=== PATIENT | male | born 1965 | race Caucasian/White ===

== ENCOUNTER → 2017-05-29 | Outpatient (CLI) | payer BC, OTHER ==
[~2017-05-29] MED LIST: CIPR500T3 PO; TYLE650T35 PO
== END ==
LOC: M SMT 09:20
PROVIDERS: ATTEND Urology
DX: R39.9 Unspecified symptoms and signs involving the genitourinary system (principal)

== ENCOUNTER → 2017-06-17 | Outpatient (CLI) | payer BC, OTHER ==
--- NOTE | 2017-06-18 09:14 | REP ---
Renal and bladder ultrasound: There are no comparisons. The kidneys are normal size per Right kidney measures 12.1 x 5.9 x 4.5 cm. Left kidney measures 12.7 x 6.4 x 5.1 cm. Renal cortical echogenicity is normal bilaterally. There is no hydronephrosis on the right on the left. There is an exophytic 2.4 cm mass at the lower pole of the left kidney containing cystic and solid components and having a low resistance arterial flow. There are no comparison studies to document stability. Neoplasm is a primary consideration. No other cysts or masses are identified on the right on the left. No renal calculi are identified. The bladder is poorly distended and cannot be further evaluated at this time. Impression: There is an exophytic 2.4 cm mass at the lower pole left kidney containing solid and cystic components and having a low resistance arterial flow pattern. Neoplasm is a primary consideration. Otherwise, negative renal ultrasound. Signed by Sreedhar Vergara MD 06/17/2017 08:17 A
== END ==
LOC: M RAD 07:09
PROVIDERS: ATTEND Urology
DX: N28.89 Other specified disorders of kidney and ureter (principal); R10.9 Unspecified abdominal pain; R82.90 Unspecified abnormal findings in urine

== ENCOUNTER → 2017-07-04 | Outpatient (CLI) | payer BC, OTHER ==
[~2017-07-04] MED LIST changes: +ISOVUE-370 76% 100ML VIAL (Q9967) As Ordered ONE
--- NOTE | 2017-07-04 14:48 | REP ---
CT study abdomen and pelvis without and with IV contrast, without oral contrast. CT urogram. History: Renal mass. No comparison CT study. Comparison renal sonography June 17, 2017. CT contrast dose: 100 mL of intravenous Isovue 370. CT findings: The lung bases are clear. The liver and the spleen are normal in size and homogeneous in texture. No adrenal lesion is seen on either side. Pancreas has a normal appearance. No abnormality is seen in the gallbladder. A normal caliber aorta is seen. There is an area of cortical atrophy in the upper pole and mid pole region of the left kidney. At the lower pole, there is a somewhat heterogeneous, enhancing mass lesion suspicious for renal cell carcinoma. This measures 2.4 cm in greatest diameter. There is no intralesional fat within this lesion. Renal veins are unremarkable bilaterally. No other renal mass lesion is observed. Delayed scan images show no filling defect or other lesion within the collecting system. No other mass lesion is seen. No bony destructive lesion is appreciated. Impression: Suspicious solid enhancing mass lower pole left kidney 2.4 cm in greatest diameter. This is suspicious for renal cell carcinoma. There is no evidence of intralesional fat. No other significant abnormality is seen. Signed by Joshua Stanley MD 07/04/2017 04:23 P
== END ==
LOC: M RAD 13:46
PROVIDERS: ATTEND Nurse Practitioner Women's Health
DX: N28.89 Other specified disorders of kidney and ureter (principal)
CPT/HCPCS: 74178; Q9967

== ENCOUNTER → 2017-07-08 | Outpatient (CLI) | payer BC, OTHER ==
[~2017-07-08] MED LIST changes: -ISOVUE-370 76% 100ML VIAL (Q9967) As Ordered ONE
--- NOTE | 2017-07-09 05:47 | ECGEPIP ---
Stationary ECG Study Test Date: 2017-07-08 Pat Name: LILLIAN AUGUSTE Department: Room: - Gender: M Vice President Process: : 1965 Requested By: AURELIA Cummings Order Number: [id number] Reading MD: Heriberto Cruz Measurements Intervals [place] Rate: 56 P: 47 NE: 159 QRS: 19 QRSD: 97 T: 14 QT: 388 QTc: 375 Interpretive Statements Sinus bradycardia Normal EKG No significant change when compared to prior tracing of 11/09/2014 Electronically Signed On 07-09-2017 5:46:43 EDT by Heriberto Cruz
== END ==
LOC: M LAB 16:01 → M EKG 16:01
PROVIDERS: ATTEND Urology
DX: Z01.818 Encounter for other preprocedural examination (principal); N28.89 Other specified disorders of kidney and ureter

== ENCOUNTER → 2017-07-08 | Outpatient (CLI) | payer BC, OTHER ==
--- NOTE | 2017-07-08 10:16 | REP ---
Chest two views HISTORY: Renal mass Comparison: 11/09/2014 The lungs are clear. The heart is normal in size. The pulmonary vasculature is normal in appearance. The bony structure is intact. IMPRESSION: No acute disease. Signed by Zeke Rey MD 07/08/2017 10:07 A
[2017-07-08 13:41] LABS: MEAN CORPUSCULAR HEMOGLOBIN 30.2 pg (27.0-33.0); MEAN CORPUSCULAR HGB CONC 34.2 g/dl (32.0-36.5); MEAN CORPUSCULAR VOLUME 88.3 fl (80.0-96.0); RED CELL DISTRIBUTION WIDTH 13.1 % (11.5-14.5); WHITE BLOOD COUNT 5.5 K/mm3 (4.0-10.0)
[2017-07-08 13:44] LABS: INR 0.9
[2017-07-08 13:47] LABS: ANION GAP 5 MEQ/L (8-16); BLOOD UREA NITROGEN 19 MG/DL (7-18); CALCIUM LEVEL 9.5 MG/DL (8.5-10.1); CARBON DIOXIDE LEVEL 32 MEQ/L (21-32); CHLORIDE LEVEL 104 MEQ/L (98-107); CREATININE FOR GFR 0.99 MG/DL (0.70-1.30); GLOMERULAR FILTRATION RATE > 60.0 (>56); GLUCOSE, FASTING 95 MG/DL (70-105); POTASSIUM SERUM 4.8 MEQ/L (3.5-5.1); SODIUM LEVEL 141 MEQ/L (136-145)
== END ==
LOC: M SMT 09:07
PROVIDERS: ATTEND Urology
DX: Z01.818 Encounter for other preprocedural examination (principal); N28.89 Other specified disorders of kidney and ureter

== ENCOUNTER 2017-07-16 06:02 | Inpatient (IN) | payer BC, OTHER ==
[~2017-07-16] VITALS: Ht 177.8 cm; Wt 86.2 kg
[2017-07-16] VITALS (7 sets, daily range): BP systolic 119–157; BP diastolic 64–80
[2017-07-16] MEDS ORDERED: LR 1,000 ML IV ONE (06:15)
[2017-07-16] MEDS ORDERED: fentaNYL 250 MCG/5 ML INJECTION (J3010) As Ordered ONE (08:28)
[2017-07-16] MEDS ORDERED: LIDOCAINE 2% INJ 100 MG/5 ML SDV (FOR ANES.) As Ordered ONE (08:28)
[2017-07-16] MEDS ORDERED: dexameTHASONE 4 MG/ML 1ML VIAL (J1100) As Ordered ONE (08:28)
[2017-07-16] MEDS ORDERED: NEOSTIGMINE 1MG/ML 5 ML SYRINGE (J2710) As Ordered ONE (08:28)
[2017-07-16] MEDS ORDERED: HYDROmorphone HCL 2 MG/ML 1ML VIAL (J1170) As Ordered ONE (08:28)
[2017-07-16] MEDS ORDERED: ROCURONIUM BROMIDE 50 MG/5 ML VIAL/SYRINGE As Ordered ONE ×2 (08:28→10:18)
[2017-07-16] MEDS ORDERED: ONDANSETRON 4MG/2ML VIAL (J2405) As Ordered ONE (08:28)
[2017-07-16] MEDS ORDERED: PROPOFOL 200 MG/20 ML VIAL As Ordered ONE (08:28)
[2017-07-16] MEDS ORDERED: MIDAZOLAM INJ 2 MG/2 ML VIAL (J2250) As Ordered ONE (08:28)
[2017-07-16] MEDS ORDERED: GLYCOPYRROLATE INJ 0.2 MG/ML 2 ML VIAL As Ordered ONE (08:28)
[2017-07-16] MEDS ORDERED: ePHEDrine SULFATE 25 MG/5 ML(5MG/ML) SYRINGE As Ordered ONE (08:36)
[2017-07-16] MEDS ORDERED: KETOROLAC 60 MG/2 ML VIAL (J1885) As Ordered ONE (11:18)
[2017-07-16] MEDS ORDERED: HYDROmorphone HCL 1 MG/ML SYRINGE (J1170) As Ordered ONE (12:02)
[2017-07-16] MEDS: HYDROmorphone HCL 1 MG/ML SYRINGE (J1170) IV PRN ×4 (12:03→12:24)
[2017-07-16] MEDS ORDERED: PERCOCET 5MG/325MG TAB PO PRN (12:15)
[2017-07-16] MEDS ORDERED: METOCLOPRAMIDE INJ 10MG/2ML VIAL (J2765) IV PRN (12:15)
[2017-07-16] MEDS ORDERED: fentaNYL 100 MCG/2 ML INJECTION (J3010) IV PRN (12:15)
[2017-07-16] MEDS ORDERED: ONDANSETRON 4MG/2ML VIAL (J2405) IV PRN ×2 (12:15)
[2017-07-16] MEDS ORDERED: LR 1,000 ML IV SCH (12:15)
[2017-07-16 12:23] LABS: MEAN CORPUSCULAR HEMOGLOBIN 30.4 pg (27.0-33.0); MEAN CORPUSCULAR HGB CONC 34.8 g/dl (32.0-36.5); MEAN CORPUSCULAR VOLUME 87.5 fl (80.0-96.0); RED CELL DISTRIBUTION WIDTH 12.9 % (11.5-14.5); WHITE BLOOD COUNT 8.2 K/mm3 (4.0-10.0)
[2017-07-16 12:43] LABS: ANION GAP 9 MEQ/L (8-16); BLOOD UREA NITROGEN 17 MG/DL (7-18); CALCIUM LEVEL 8.4 MG/DL (8.5-10.1); CARBON DIOXIDE LEVEL 25 MEQ/L (21-32); CHLORIDE LEVEL 108 MEQ/L (98-107); CREATININE FOR GFR 1.07 MG/DL (0.70-1.30); GLOMERULAR FILTRATION RATE > 60.0 (>56); GLUCOSE, FASTING 119 MG/DL (70-105); POTASSIUM SERUM 3.9 MEQ/L (3.5-5.1); SODIUM LEVEL 142 MEQ/L (136-145)
[2017-07-16] MEDS: PANTOPRAZOLE 40MG INJ (PROTONIX) (C9113) IV SCH (13:27)
[2017-07-16] MEDS: KCL 20MEQ IN D5/0.45NS 1000ML 1,000 ML IV SCH ×2 (13:27→21:10)
[2017-07-16] MEDS: ACETAMINOPHEN 650MG ER TAB (TYLENOL ARTHRITIS) PO SCH ×2 (15:08→22:35)
[2017-07-16] MEDS: MORPHINE 4 MG/ML 1ML SYRINGE IV PRN ×2 (16:08→21:09)
[2017-07-16] MEDS: CIPROFLOXACIN 500 MG TAB PO SCH (17:49)
[2017-07-16] MEDS: oxyCODONE 5MG TAB PO PRN (17:50)
[2017-07-16] MEDS ORDERED: KETOROLAC 30 MG/ML VIAL (J1885) As Ordered ONE (20:07)
[2017-07-16] MEDS: KETOROLAC 30 MG/ML VIAL (J1885) IV SCH (20:13)
[2017-07-17] VITALS: BP 128/72
[2017-07-17] MEDS: MORPHINE 4 MG/ML 1ML SYRINGE IV PRN ×3 (00:06→09:21)
[2017-07-17 04:00] VITALS: BP 138/61
[2017-07-17] MEDS: KETOROLAC 30 MG/ML VIAL (J1885) IV SCH ×2 (04:08→11:46)
[2017-07-17] MEDS: KCL 20MEQ IN D5/0.45NS 1000ML 1,000 ML IV SCH ×3 (04:08→20:35)
[2017-07-17] MEDS: CIPROFLOXACIN 500 MG TAB PO SCH ×2 (05:56→17:25)
[2017-07-17] MEDS: ACETAMINOPHEN 650MG ER TAB (TYLENOL ARTHRITIS) PO SCH ×3 (05:56→21:17)
[2017-07-17 08:00] VITALS: BP 128/76
[2017-07-17 08:05] LABS: MEAN CORPUSCULAR HEMOGLOBIN 30.4 pg (27.0-33.0); MEAN CORPUSCULAR HGB CONC 34.5 g/dl (32.0-36.5); MEAN CORPUSCULAR VOLUME 88.4 fl (80.0-96.0); RED CELL DISTRIBUTION WIDTH 13.1 % (11.5-14.5); WHITE BLOOD COUNT 11.2 K/mm3 (4.0-10.0)
[2017-07-17 08:36] LABS: ANION GAP 10 MEQ/L (8-16); BLOOD UREA NITROGEN 12 MG/DL (7-18); CALCIUM LEVEL 7.9 MG/DL (8.5-10.1); CARBON DIOXIDE LEVEL 25 MEQ/L (21-32); CHLORIDE LEVEL 106 MEQ/L (98-107); CREATININE FOR GFR 0.84 MG/DL (0.70-1.30); GLOMERULAR FILTRATION RATE > 60.0 (>56); GLUCOSE, FASTING 122 MG/DL (70-105); POTASSIUM SERUM 4.3 MEQ/L (3.5-5.1); SODIUM LEVEL 141 MEQ/L (136-145)
[2017-07-17 12:00] VITALS: BP 124/71
[2017-07-17] MEDS: PANTOPRAZOLE 40MG INJ (PROTONIX) (C9113) IV SCH (13:15)
[2017-07-17 16:00] VITALS: BP 117/63
[2017-07-17] MEDS: oxyCODONE 5MG TAB PO PRN (17:28)
[2017-07-17] MEDS ORDERED: oxyCODONE 5MG TAB PO PRN (18:00)
[2017-07-17 20:00] VITALS: BP 134/73
[2017-07-18] VITALS: BP 122/66
[2017-07-18] MEDS: oxyCODONE 5MG TAB PO PRN ×4 (02:45→17:44)
[2017-07-18 04:00] VITALS: BP 121/69
--- NOTE | 2017-07-18 05:54 | RO ---
DATE OF PROCEDURE: 07/16/2017 PREOPERATIVE DIAGNOSIS: Left renal neoplasm. POSTOPERATIVE DIAGNOSIS: Left renal neoplasm. SURGERY PERFORMED: Robotic-assisted left partial nephrectomy. SURGEON: Pietro Dominguez MD FILE MACHINE OPERATOR: Franny Callaway NP ANESTHESIA: General. ESTIMATED BLOOD LOSS (EBL): 100 mL. COMPLICATIONS: None. HISTORY OF PRESENT ILLNESS: 52-year-old male patient that has a 2.5 cm left renal neoplasm enhancing on CT scan of the abdomen and pelvis with intravenous (IV) contrast. For this reason, he has elected for robotic-assisted left partial nephrectomy. PROCEDURE DESCRIPTION: In a patient in supine modified low lithotomy position under general anesthesia with an orogastric tube draining gastric content and a Greene catheter #[id number] with a 10 mL balloon draining the Greene catheter, we placed the patient in the decubitolateral position with the left side up and the right side down. We then proceeded to prep and drape the area of concern, which included the entire genitalia and abdomen and the left flank. We then proceeded to do an incision about 2 cm in diameter in the supraumbilical area about 4 cm above the umbilicus and about 2 cm towards the lateral area of the umbilicus. Through this incision, we opened up abdominal cavity, introduced a balloon trocar, and inflated the balloon to 40 mL; and through this balloon trocar, we actively insufflated the abdomen with CO2 at a maximum pressure of 15 at high flow. Under videoendoscopic guidance with the help of robotic camera, we actively placed the other trocars in a controlled fashion. We placed an 8 mm metallic trocar in midclavicular line subcostally and then another 8 mm metallic trocar in the left lower quadrant in the midclavicular line also. Between these two, we placed a 12 mm VersaStep. In the anterior axillary line, we placed a long 8 mm metallic trocar also 2 cm away from the anterior iliac crest for the third arm. We then proceeded to dock the robot. On the left arm, we used monopolar scissors. On the right arm, we used bipolar PK and a ProGrasp. We started by dissecting the line of Toldt and retracting the colon toward the midline. We then proceeded to actively dissect the gonadal vessel, following the gonadal vessel up to the renal vein. Once we identified the renal vein, we actively dissected the ureter and in traction lateral with the third arm. We then proceeded to elevate the lower pole of the kidney with the third arm, traction in the lower pole of the kidney laterally and up. We then dissected the renal artery. After dissecting the renal artery and the renal vein, we introduced a bulldog inside the abdomen. We then proceeded to actively defat the kidney in the lower pole and the lateral part, also. We identified the mass, which was exophytic, about 2 cm in diameter to 2.5 cm in diameter. We introduced an intraoperative ultrasound and, under TilePro visualization, we demarcated the margins of the tumor. We then proceeded to actively introduce 2.5 mL of indocyanine green in the vein and, actually, we could identify the vasculature pedicle of the kidney and also we could actually visualize green parenchyma and lack of indocyanine green captation of the mass. At that moment in time, we actually, with a bulldog, clamped the artery and then, with monopolar scissors, excised the renal neoplasm. We then proceeded to actively introduce #3-0 V-Loc attached to a Hem-o-jayashree at the end and running it completely the at the medulla and securing it with Hem-o-jayashree in the capsule of the kidney. We then proceeded to pass a second #3-0 V-Loc and run it in the medulla also to control hemostasis. Once it was performed, we placed a Hem-o-jayashree against the capsule of the kidney. We then took out the bulldog. The warm ischemia time was 17 minutes. We then proceeded to actually grab #2-0 V-Locs attached to a Hem-o-jayashree at the end of the suture line and approximated the capsule, closing the parenchyma excision area, and closing the wound on the kidney with a V-Loc approximating both parenchymal edges with V-Loc and Hem-o-jayashree sliding clips in a running fashion. Once hemostasis was controlled, we placed Randi on top of it and then placed the kidney and the peritumoral fat into a 10 mm Endo Catch bag and then took out the third arm and placed a round drain, a #15 blade, into retroperitoneal space. We then took all the instruments out and undocked the robot. We took the mass in the Endo Catch bag through the midline incision and then closed the optic port in two layers with UR-6 and #0 Vicryl in separate stitches times four the first layer and times four the second layer. We then suture ligated the drain to the skin with #3-0 nylon and put it into bulb suction. We then closed every single incision with Monocryl subcuticular stitches in a running fashion, placed Steri-Strips, Telfa, and Tegaderm on top of each incision site. There were no complications during surgery. Patient will pass to recovery and then to the floor. Once he is tolerating regular diet and voiding very well, he will be discharged home. Mass was sent as left renal neoplasm.
[2017-07-18] MEDS: CIPROFLOXACIN 500 MG TAB PO SCH ×2 (06:23→17:44)
[2017-07-18] MEDS: ACETAMINOPHEN 650MG ER TAB (TYLENOL ARTHRITIS) PO SCH ×3 (06:23→21:17)
[2017-07-18 06:54] LABS: MEAN CORPUSCULAR HEMOGLOBIN 30.2 pg (27.0-33.0); MEAN CORPUSCULAR HGB CONC 33.4 g/dl (32.0-36.5); MEAN CORPUSCULAR VOLUME 90.6 fl (80.0-96.0); RED CELL DISTRIBUTION WIDTH 13.4 % (11.5-14.5); WHITE BLOOD COUNT 8.3 K/mm3 (4.0-10.0)
[2017-07-18] MEDS: KCL 20MEQ IN D5/0.45NS 1000ML 1,000 ML IV SCH (07:04)
[2017-07-18 07:05] LABS: ANION GAP 6 MEQ/L (8-16); BLOOD UREA NITROGEN 16 MG/DL (7-18); CALCIUM LEVEL 7.8 MG/DL (8.5-10.1); CARBON DIOXIDE LEVEL 29 MEQ/L (21-32); CHLORIDE LEVEL 109 MEQ/L (98-107); CREATININE FOR GFR 0.87 MG/DL (0.70-1.30); GLOMERULAR FILTRATION RATE > 60.0 (>56); GLUCOSE, FASTING 100 MG/DL (70-105); POTASSIUM SERUM 4.1 MEQ/L (3.5-5.1); SODIUM LEVEL 144 MEQ/L (136-145)
[2017-07-18 08:45] VITALS: BP 142/86
[2017-07-18 12:30] VITALS: BP 141/82
[2017-07-18] MEDS: PANTOPRAZOLE 40MG INJ (PROTONIX) (C9113) IV SCH (13:31)
[2017-07-18 15:46] LABS: SOURCE, BODY FLUID CREATININE OTHER
[2017-07-18 16:00] VITALS: BP 139/83
[2017-07-18 20:00] VITALS: BP 153/86
[2017-07-19 02:00] VITALS: BP 122/73
[2017-07-19] MEDS: oxyCODONE 5MG TAB PO PRN ×2 (02:29→11:59)
[2017-07-19] MEDS: ACETAMINOPHEN 650MG ER TAB (TYLENOL ARTHRITIS) PO SCH ×2 (05:47→13:52)
[2017-07-19] MEDS: CIPROFLOXACIN 500 MG TAB PO SCH (05:47)
[2017-07-19 06:52] LABS: MEAN CORPUSCULAR HEMOGLOBIN 30.2 pg (27.0-33.0); MEAN CORPUSCULAR HGB CONC 33.2 g/dl (32.0-36.5); RED CELL DISTRIBUTION WIDTH 13.3 % (11.5-14.5); WHITE BLOOD COUNT 6.8 K/mm3 (4.0-10.0)
[2017-07-19 07:09] LABS: ANION GAP 9 MEQ/L (8-16); BLOOD UREA NITROGEN 15 MG/DL (7-18); CALCIUM LEVEL 8.3 MG/DL (8.5-10.1); CARBON DIOXIDE LEVEL 30 MEQ/L (21-32); CHLORIDE LEVEL 106 MEQ/L (98-107); CREATININE FOR GFR 1.11 MG/DL (0.70-1.30); GLOMERULAR FILTRATION RATE > 60.0 (>56); GLUCOSE, FASTING 131 MG/DL (70-105); POTASSIUM SERUM 4.2 MEQ/L (3.5-5.1); SODIUM LEVEL 145 MEQ/L (136-145)
[2017-07-19 08:00] VITALS: BP 127/78
[2017-07-19 12:00] VITALS: BP 154/87
[2017-07-19] MEDS: PANTOPRAZOLE 40MG INJ (PROTONIX) (C9113) IV SCH (13:51)
[2017-07-19] MEDS ORDERED: CIPR500T3 PO (14:10)
[2017-07-19] MEDS ORDERED: TYLE650T35 PO (14:10)
--- NOTE | 2017-07-21 21:08 | DSES ---
DATE OF ADMISSION: 07/16/2017 DATE OF DISCHARGE: 07/19/2017 PREOPERATIVE DIAGNOSIS: Left renal tumor. POSTOPERATIVE DIAGNOSIS: Left renal tumor. SURGERY PERFORMED: Robotic-assisted left partial nephrectomy. ADMITTING SURGEON: Dr. Pietro Dominguez DISCHARGING SURGEON: Dr. Pietro Dominguez SURGERY PERFORMED BY: Dr. Pietro Dominguez HISTORY OF PRESENT ILLNESS: A 52-year-old male patient who had incidental finding of a 2.5 cm left enhancing renal neoplasm on a CT scan of an abdomen and pelvis with intravenous (IV) contrast. Patient for this reason had elected to have a robotic-assisted partial nephrectomy performed on 07/16/2017 without complications. He was admitted after this. HOSPITALIZATION COURSE: The patient did very well. By postoperative day #1 he was having clear liquid diet. Pain was under control with IV pain medication. He was continued on Greene catheter on postoperative day #1. Within postoperative day #2 he was tolerating an oral diet, ambulating very well, and the pain well controlled with by mouth pain medication with maintenance IV fluids, and [facility]. On postoperative day #3, the patient was tolerating a regular diet. Pain was controlled with by mouth pain medication. He was voiding very well spontaneously. His RAMILA output was minimal. His creatinine level in the RAMILA fluid was 1. Was compatible with SERUM CREATININE. For this reason we discontinued the RAMILA. He wanted to go him, and we agreed upon this. He will go home with oxycodone 5 mg one tablet by mouth every 6 hours as needed for pain. He will take Tylenol 500 mg one tablet by mouth every 6 hours around the clock. He cannot do any heavy lifting above 20 pounds. He may shower in 3 days. No driving under narcotics. He cannot do any exercise for 2 weeks. Followup at [facility] in 2 weeks. 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 Margins negative. MTDD
== END 2017-07-19 14:30 | disposition home or self-care (01) | DRG 443 ==
LOC: M OR 06:02 → M PED 12:58
PROVIDERS: ADMIT Urology; ATTEND Urology
PROC: 0TB14ZZ Excision of Left Kidney, Percutaneous Endoscopic Approach (ICD-10-PCS; principal; 2017-07-16 07:30)
DX: D30.02 Benign neoplasm of left kidney (principal)

== ENCOUNTER → 2017-09-02 | Outpatient (REF) | payer BC, OTHER ==
[2017-09-02 20:46] LABS: MEAN CORPUSCULAR HGB CONC 33.4 g/dl (32.0-36.5); MEAN CORPUSCULAR VOLUME 86.8 fl (80.0-96.0); PLATELET COUNT, AUTOMATED 201 10^3/uL (150-450); RED CELL DISTRIBUTION WIDTH 12.4 % (11.5-14.5); WHITE BLOOD COUNT 5.2 10^3/uL (4.0-10.0)
[2017-09-02 21:20] LABS: ANION GAP 8 MEQ/L (8-16); BLOOD UREA NITROGEN 20 MG/DL (7-18); CALCIUM LEVEL 9.2 MG/DL (8.5-10.1); CARBON DIOXIDE LEVEL 29 MEQ/L (21-32); CHLORIDE LEVEL 105 MEQ/L (98-107); CREATININE FOR GFR 1.07 MG/DL (0.70-1.30); GLOMERULAR FILTRATION RATE > 60.0 (>56); GLUCOSE, FASTING 108 MG/DL (70-105); POTASSIUM SERUM 4.3 MEQ/L (3.5-5.1); SODIUM LEVEL 142 MEQ/L (136-145)
== END ==
LOC: M SMT 15:14
PROVIDERS: ATTEND Urology
DX: N28.89 Other specified disorders of kidney and ureter (principal)

== ENCOUNTER → 2018-01-04 | Outpatient (REF) | payer BC, OTHER ==
[2018-01-04 16:52] LABS: HEMATOCRIT 48.4 % (42.0-52.0); HEMOGLOBIN 16.4 g/dl (14.0-18.0); MEAN CORPUSCULAR HEMOGLOBIN 29.3 pg (27.0-33.0); MEAN CORPUSCULAR HGB CONC 33.9 g/dl (32.0-36.5); MEAN CORPUSCULAR VOLUME 86.4 fl (80.0-96.0); PLATELET COUNT, AUTOMATED 194 10^3/uL (150-450); RED CELL DISTRIBUTION WIDTH 13.2 % (11.5-14.5); WHITE BLOOD COUNT 6.7 10^3/uL (4.0-10.0)
[2018-01-04 17:06] LABS: URIC ACID 6.1 MG/DL (3.5-7.2)
[2018-01-04 17:21] LABS: ERYTHROCYTE SEDIMENTATION RATE 2 mm/hr (0-20)
== END ==
LOC: M LAB REF 16:37
DX: M25.50 Pain in unspecified joint (principal)

== ENCOUNTER → 2018-04-06 | Outpatient (REF) | payer BC, OTHER ==
[2018-04-06 15:19] LABS: HEMATOCRIT 48.4 % (42.0-52.0); HEMOGLOBIN 16.7 g/dl (13.5-17.5); MEAN CORPUSCULAR HEMOGLOBIN 29.7 pg (27.0-33.0); MEAN CORPUSCULAR HGB CONC 34.5 g/dl (32.0-36.5); MEAN CORPUSCULAR VOLUME 86.1 fl (80.0-96.0); PLATELET COUNT, AUTOMATED 201 10^3/uL (150-450); RED BLOOD COUNT 5.62 10^6/uL (4.30-6.10); RED CELL DISTRIBUTION WIDTH 12.3 % (11.5-14.5)
[2018-04-06 15:25] LABS: APPEARANCE, URINE CLEAR (CLEAR); BACTERIA, URINE AUTO NEGATIVE (NEGATIVE); BILIRUBIN, URINE AUTO NEGATIVE (NEGATIVE); BLOOD, URINE BLOOD NEGATIVE (NEGATIVE); COLOR, URINE YELLOW (YELLOW); GLUCOSE, URINE (UA) AUTO NEGATIVE (NEGATIVE); KETONE, URINE AUTO NEGATIVE (NEGATIVE); LEUKOCYTE ESTERASE, URINE AUTO NEGATIVE (NEGATIVE); MUCUS, URINE SMALL (NEGATIVE); NITRITE, URINE AUTO NEGATIVE (NEGATIVE); PROTEIN, URINE AUTO NEGATIVE (NEGATIVE); RBC, URINE AUTO 0 /HPF (0-3); SPECIFIC GRAVITY URINE AUTO 1.023 (1.002-1.035); SQUAMOUS EPITHELIAL CELL UR AU 0 /HPF (0-6); UROBILINOGEN, URINE AUTO 0.2 mg/dL (0.0-2.0); WBC, URINE AUTO 0 /HPF (0-3)
[2018-04-06 16:10] LABS: ANION GAP 11 MEQ/L (8-16); BLOOD UREA NITROGEN 27 MG/DL (7-18); CARBON DIOXIDE LEVEL 23 MEQ/L (21-32); CHLORIDE LEVEL 109 MEQ/L (98-107); CREATININE FOR GFR 1.03 MG/DL (0.70-1.30); GLOMERULAR FILTRATION RATE > 60.0 (>56); GLUCOSE, FASTING 85 MG/DL (70-100); SODIUM LEVEL 143 MEQ/L (136-145)
[2018-04-10 13:39] LABS: PSA TOTAL 0.9 ng/mL
== END ==
LOC: M SMT 12:00
DX: D17.71 Benign lipomatous neoplasm of kidney (principal)
CPT/HCPCS: 80048

== ENCOUNTER → 2019-05-18 | Outpatient (CLI) | payer BC, OTHER ==
[~2019-05-18] MED LIST changes: +ISOVUE-370 76% 100ML VIAL (Q9967) As Ordered ONE
--- NOTE | 2019-05-18 22:02 | REP ---
Clinical: Abdominal and flank pain. Technique: Axial precontrast, contrast enhanced, and delayed images of the abdomen using 100 ml Isovue 370 intravenous contrast material with coronal and sagittal re-formations. Comparison: 07/04/2017 Findings: Liver, spleen, pancreas, gallbladder, and bilateral adrenal glands are normal. The right kidney is normal in all phases of evaluation. The left kidney demonstrates postsurgical changes along the posterior cortex consistent with prior partial nephrectomy. No residual left renal mass identified. Few simple left renal cysts are identified measuring up to approximately 12 mm. The visualized enteric system is normal. No ascites. No adenopathy. Osseous structures are intact and normal. Impression: Nonacute postsurgical changes along the periphery of the left kidney. No evidence for recurrence or metastatic disease. Few simple left renal cysts measure up to 12 mm. Right kidney is normal. Electronically Signed by Rj Eduardo MD 05/18/2019 09:53 P
== END ==
LOC: M RAD 08:42
PROVIDERS: ATTEND Urology
DX: N28.1 Cyst of kidney, acquired (principal)
CPT/HCPCS: 74170; Q9967

== ENCOUNTER → 2020-08-08 | Outpatient (REF) | payer BC, OTHER ==
[~2020-08-08] MED LIST changes: +ACET650T61 PO; -ISOVUE-370 76% 100ML VIAL (Q9967) As Ordered ONE; -TYLE650T35 PO
[2020-08-08 22:36] LABS: BASO % 0.5 % (0.0-1.0); EOS # 0.2 10^3/uL (0.0-0.5); EOS % 3.5 % (0.0-3.0); HEMATOCRIT 47.3 % (42.0-52.0); LYMPH # 1.7 10^3/uL (1.5-5.0); LYMPH % 28.7 % (24.0-44.0); MEAN CORPUSCULAR HEMOGLOBIN 29.7 pg (27.0-33.0); MEAN CORPUSCULAR HGB CONC 33.8 g/dl (32.0-36.5); MEAN CORPUSCULAR VOLUME 87.8 fl (80.0-96.0); MONO # 0.6 10^3/uL (0.0-0.8); MONO % 10.6 % (0.0-5.0); NEUTROPHILS # 3.3 10^3/uL (1.5-8.5); NEUTROPHILS % 56.4 % (36.0-66.0); PLATELET COUNT, AUTOMATED 203 10^3/uL (150-450); RED BLOOD COUNT 5.39 10^6/uL (4.30-6.10); WHITE BLOOD COUNT 5.9 10^3/uL (4.0-10.0)
[2020-08-08 22:46] LABS: APPEARANCE, URINE CLEAR (CLEAR); BACTERIA, URINE AUTO NEGATIVE (NEGATIVE); BILIRUBIN, URINE AUTO NEGATIVE (NEGATIVE); BLOOD, URINE BLOOD NEGATIVE (NEGATIVE); COLOR, URINE YELLOW (YELLOW); GLUCOSE, URINE (UA) AUTO NEGATIVE (NEGATIVE); KETONE, URINE AUTO NEGATIVE (NEGATIVE); LEUKOCYTE ESTERASE, URINE AUTO NEGATIVE (NEGATIVE); MUCUS, URINE SMALL (NEGATIVE); NITRITE, URINE AUTO NEGATIVE (NEGATIVE); PROTEIN, URINE AUTO NEGATIVE (NEGATIVE); RBC, URINE AUTO 0 /HPF (0-3); SPECIFIC GRAVITY URINE AUTO 1.015 (1.002-1.035); SQUAMOUS EPITHELIAL CELL UR AU 0 /HPF (0-6); UROBILINOGEN, URINE AUTO 0.2 mg/dL (0.0-2.0); WBC, URINE AUTO 0 /HPF (0-3)
== END ==
LOC: M LAB REF 10:52
PROVIDERS: ATTEND Urology
DX: D17.71 Benign lipomatous neoplasm of kidney (principal); N28.1 Cyst of kidney, acquired

== ENCOUNTER → 2022-01-02 | Outpatient (CLI) | payer BC, OTHER ==
[~2022-01-02] MED LIST changes: +GASTROGRAFIN SOLUTION 30ML (Q9963) As Ordered ONE; +ISOVUE-370 76% 100ML VIAL As Ordered ONE
== END ==
LOC: M RAD 08:58
PROVIDERS: ATTEND Physician Assistant Medical
DX: R10.9 Unspecified abdominal pain (principal); R19.4 Change in bowel habit; N28.1 Cyst of kidney, acquired; K57.30 Diverticulosis of large intestine without perforation or abscess without bleeding
CPT/HCPCS: 74177; Q9963; Q9967

== ENCOUNTER → 2022-01-08 | Outpatient (CLI) | payer BC, OTHER ==
[~2022-01-08] MED LIST changes: -GASTROGRAFIN SOLUTION 30ML (Q9963) As Ordered ONE; -ISOVUE-370 76% 100ML VIAL As Ordered ONE
== END ==
LOC: M RAD 11:21
PROVIDERS: ATTEND Physician Assistant Medical
DX: R10.11 Right upper quadrant pain (principal); K76.0 Fatty (change of) liver, not elsewhere classified; R14.0 Abdominal distension (gaseous)

== ENCOUNTER → 2022-03-10 | Outpatient (REF) | payer BC, OTHER | LOC: M LAB REF 17:06 | PROVIDERS: ATTEND Internal Medicine Gastroenterology | DX: R19.7 Diarrhea, unspecified (principal); R14.0 Abdominal distension (gaseous); K76.0 Fatty (change of) liver, not elsewhere classified; R19.5 Other fecal abnormalities ==

== ENCOUNTER → 2022-06-10 | Outpatient (REF) | payer BC, OTHER | LOC: M LAB REF 09:23 | PROVIDERS: ATTEND Physician Assistant Medical | DX: J02.9 Acute pharyngitis, unspecified (principal) ==

== ENCOUNTER → 2022-06-15 | Outpatient (CLI) | payer BC, OTHER ==
[~2022-06-15] MED LIST changes: +GASTROGRAFIN SOLUTION 30ML (Q9963) As Ordered ONE; +ISOVUE-370 76% 100ML VIAL As Ordered ONE
== END ==
LOC: M RAD 07:56
PROVIDERS: ATTEND Physician Assistant Medical
DX: R10.9 Unspecified abdominal pain (principal)
CPT/HCPCS: 74177; Q9963; Q9967

== ENCOUNTER → 2022-07-25 | Outpatient (REF) | payer BC ==
[~2022-07-25] MED LIST changes: -GASTROGRAFIN SOLUTION 30ML (Q9963) As Ordered ONE; -ISOVUE-370 76% 100ML VIAL As Ordered ONE
[2022-07-25 21:57] LABS: APPEARANCE, URINE MANUAL CLEAR (CLEAR); BILIRUBIN, URINE MANUAL NEGATIVE (NEGATIVE); BLOOD URINE MANUAL TRACE (NEGATIVE); COLOR, URINE MANUAL YELLOW (YELLOW); GLUCOSE, URINE (UA) MANUAL NEGATIVE (NEGATIVE); KETONE, URINE MANUAL NEGATIVE (NEGATIVE); LEUKOCYTE ESTERASE, URINE MAN NEGATIVE (NEGATIVE); NITRITE, URINE MANUAL NEGATIVE (NEGATIVE); PROTEIN, URINE MANUAL NEGATIVE (NEGATIVE); SPECIFIC GRAVITY,URINE MANUAL 1.025 (1.002-1.035); UROBILINOGEN, URINE MANUAL NORMAL (NORMAL)
[2022-07-25 22:05] LABS: BACTERIA, URINE NONE SEEN; HYALINE CAST, URINE NONE SEEN /lpf (0-1); MUCUS, URINE LARGE AMOUNT (NEGATIVE); RBC, URINE 0-1 /hpf (0-3); SQUAMOUS EPITHELIAL CELL URINE SMALL AMOUNT /hpf (SMALL AMT)
== END ==
LOC: M LAB REF 21:30
PROVIDERS: ATTEND Physician Assistant
DX: N39.0 Urinary tract infection, site not specified (principal)

== ENCOUNTER → 2023-09-20 | Outpatient (REF) | payer BC, OTHER | LOC: M LAB REF 21:35 | PROVIDERS: ATTEND Physician Assistant Medical | DX: R53.83 Other fatigue (principal); M25.50 Pain in unspecified joint ==

== ENCOUNTER → 2023-10-23 | Outpatient (CLI) | payer BC, OTHER | LOC: M LAB 15:18 | PROVIDERS: ATTEND Urology | DX: Z12.5 Encounter for screening for malignant neoplasm of prostate (principal) ==

== ENCOUNTER → 2024-10-19 | Outpatient (CLI) | payer BC, OTHER ==
[2024-10-19 06:58] LABS: ALBUMIN 4.1 G/DL (3.2-5.2); ALKALINE PHOSPHATASE 94 U/L (40-129); ALT/SGPT 55 U/L (7.0-40); AST/SGOT 28 U/L (<34); BLOOD UREA NITROGEN 24 MG/DL (9-23); CALCIUM LEVEL 9.8 MG/DL (8.5-10.1); CARBON DIOXIDE LEVEL 29 MMOL/L (20-31); CHLORIDE LEVEL 105 MMOL/L (98-107); CHOLESTEROL LEVEL 206 MG/DL (<200); CREATININE FOR GFR 1.17 MG/DL (0.70-1.30); GLOMERULAR FILTRATION RATE > 60.0 (>56); GLUCOSE, FASTING 115 MG/DL (60-100); HDL CHOLESTEROL 47.8 MG/DL (>40); NON-HDL-C 158.2 MG/DL; POTASSIUM SERUM 4.2 MMOL/L (3.5-5.1); SODIUM LEVEL 141 MMOL/L (136-145); TOTAL PROTEIN 7.1 G/DL (5.7-8.2); TRIGLYCERIDES LEVEL 136 MG/DL (<150)
== END ==
LOC: M LAB 06:03
PROVIDERS: ATTEND Physician Assistant
DX: E78.00 Pure hypercholesterolemia, unspecified (principal)

== ENCOUNTER → 2024-11-03 | Outpatient (CLI) | payer BC, OTHER | LOC: M LAB 06:09 | PROVIDERS: ATTEND Urology | DX: Z12.5 Encounter for screening for malignant neoplasm of prostate (principal) ==

== ENCOUNTER → 2024-11-26 | Outpatient (REF) | payer BC, OTHER ==
[2024-11-26 17:57] LABS: APPEARANCE, URINE CLEAR (CLEAR); BACTERIA, URINE AUTO NEGATIVE (NEGATIVE); BILIRUBIN, URINE AUTO NEGATIVE (NEGATIVE); BLOOD, URINE BLOOD NEGATIVE (NEGATIVE); COLOR, URINE YELLOW (YELLOW); GLUCOSE, URINE (UA) AUTO NEGATIVE (NEGATIVE); KETONE, URINE AUTO NEGATIVE (NEGATIVE); LEUKOCYTE ESTERASE, URINE AUTO NEGATIVE (NEGATIVE); MUCUS, URINE SMALL (NEGATIVE); NITRITE, URINE AUTO NEGATIVE (NEGATIVE); PROTEIN, URINE AUTO NEGATIVE (NEGATIVE); RBC, URINE AUTO 0 /HPF (0-3); SPECIFIC GRAVITY URINE AUTO 1.024 (1.002-1.035); SQUAMOUS EPITHELIAL CELL UR AU 0 /HPF (0-6); UROBILINOGEN, URINE AUTO 0.2 mg/dL (0.0-2.0); WBC, URINE AUTO 0 /HPF (0-3)
== END ==
LOC: M LAB REF 17:18
PROVIDERS: ATTEND Physician Assistant
DX: Z01.818 Encounter for other preprocedural examination (principal)

== ENCOUNTER → 2025-11-10 | Outpatient (CLI) | payer BC, OTHER | LOC: M LAB 06:10 | PROVIDERS: ATTEND Urology | DX: Z12.5 Encounter for screening for malignant neoplasm of prostate (principal) ==